=== PATIENT | male | born 1955 | race Caucasian/White ===

== ENCOUNTER → 2016-08-11 | Day surgery (SDC) | payer OTHER ==
[2016-08-11 10:08] LABS: HCT 47.2 % (42.0-52.0); HGB 15.8 g/dl (13.2-18.0); MCH 30.6 pg (25.0-31.0); MCHC 33.5 g/dL (32.0-36.0); MCV 91.5 fL (78.0-100.0); MPV 11.3 fL (6.0-9.5); RBC 5.16 M/uL (4.70-6.00); RDW 13.1 % (11.5-14.0); WBC 6.8 K/uL (4.0-10.5)
[2016-08-11 10:20] LABS: ALBUMIN 4.5 g/dL (3.4-4.8); BILIRUBIN - TOTAL 0.6 mg/dL (0.1-1.0); CREATININE 0.7 mg/dL (0.7-1.2); GLOBULIN (CALCULATION) 3.2 g/dL (2.2-4.2); POTASSIUM 4.7 mmol/L (3.5-5.1); TOTAL PROTEIN 7.7 g/dL (6.4-8.3)
== END | disposition home or self-care (01) ==
LOC: FAS 09:33
PROVIDERS: Surgery
DX: K80.10 Calculus of gallbladder with chronic cholecystitis without obstruction (principal); K42.0 Umbilical hernia with obstruction, without gangrene; K21.9 Gastro-esophageal reflux disease without esophagitis; E11.9 Type 2 diabetes mellitus without complications; E78.00 Pure hypercholesterolemia, unspecified; I10 Essential (primary) hypertension; I25.2 Old myocardial infarction; I25.10 Atherosclerotic heart disease of native coronary artery without angina pectoris; I77.9 Disorder of arteries and arterioles, unspecified; I65.21 Occlusion and stenosis of right carotid artery; G45.3 Amaurosis fugax; Z87.442 Personal history of urinary calculi; Z87.891 Personal history of nicotine dependence; Z95.1 Presence of aortocoronary bypass graft; Z90.49 Acquired absence of other specified parts of digestive tract; Z98.890 Other specified postprocedural states; Z88.1 Allergy status to other antibiotic agents; Z79.82 Long term (current) use of aspirin; Z79.84 Long term (current) use of oral hypoglycemic drugs; Z79.899 Other long term (current) drug therapy
CPT/HCPCS: 36415; 80053; 88304; J1170; J2405; J2704; J2710; J3010; Q9962

== ENCOUNTER → 2020-08-26 | Day surgery (SDC) | payer MEDICARE ==
[~2020-08-26] MED LIST: ALBUTEROL2.5 MG/3 M NEB; ASPIRIN EC81 MG PO; CLOPIDOGREL75 MG PO; COREG 6.25MG6.25 MG PO; EFFIENT10 MG PO; HYDRALAZINE HCL25 MG PO; HYDRALAZINE25 MG PO; ISOSORBIDE MONO30 MG PO; LIPITOR40 MG PO; LISINOPRIL20 MG PO; METFORMIN HCL500 MG PO; METOPROLOL SUCC25 MG PO; NITROGLYCERIN0.4 MG PO; PANTOPRAZOLE SO40 MG PO; PREDNISONE 10MG10 MG PO; PRINIVIL20 MG PO; RANOLAZINE ER500 MG PO; VIBRAMYCIN100 MG PO; ZESTRIL5 MG PO
[2020-08-26 07:39] LABS: HCT 39.2 % (42.0-52.0); HGB 13.4 g/dl (13.2-18.0); MCH 30.9 pg (25.0-31.0); MCHC 34.2 g/dL (32.0-36.0); MCV 90.5 fL (78.0-100.0); MPV 11.2 fL (6.0-9.5); RBC 4.33 M/uL (4.70-6.00); WBC 8.4 K/uL (4.0-10.5)
[2020-08-26 08:10] LABS: ALBUMIN 4.1 g/dL (3.4-5.0); BILIRUBIN - TOTAL 0.9 mg/dL (0.2-1.0); BUN/CREAT RATIO (CALC) 19.4 RATIO; CREATININE 1.03 mg/dL (0.67-1.17); GLOBULIN (CALCULATION) 3.8 g/dL; POTASSIUM 3.4 mmol/L (3.5-5.1); TOTAL PROTEIN 7.9 g/dL (6.4-8.2)
== END | disposition home or self-care (01) ==
LOC: FAS 06:51
PROVIDERS: Surgery
DX: D12.6 Benign neoplasm of colon, unspecified (principal); K63.5 Polyp of colon; K57.30 Diverticulosis of large intestine without perforation or abscess without bleeding; K22.2 Esophageal obstruction; K29.70 Gastritis, unspecified, without bleeding; I25.10 Atherosclerotic heart disease of native coronary artery without angina pectoris; I25.2 Old myocardial infarction; I10 Essential (primary) hypertension; E78.00 Pure hypercholesterolemia, unspecified; E11.51 Type 2 diabetes mellitus with diabetic peripheral angiopathy without gangrene; G47.30 Sleep apnea, unspecified; K58.9 Irritable bowel syndrome, unspecified; Z87.891 Personal history of nicotine dependence; Z95.5 Presence of coronary angioplasty implant and graft; Z88.1 Allergy status to other antibiotic agents; Z79.82 Long term (current) use of aspirin; Z79.02 Long term (current) use of antithrombotics/antiplatelets; Z79.84 Long term (current) use of oral hypoglycemic drugs; Z79.899 Other long term (current) drug therapy
CPT/HCPCS: 36415; 80053; 88305; C1726; J1610; J2250; J2405; J2704; J3490; J7120

== ENCOUNTER 2021-11-12 11:55 | Emergency (ER) | payer MEDICARE ==
[2021-11-12 12:35] LABS: BASOPHIL 0.4 % (0-2); EOSINOPHIL 0.5 % (0-7); HCT 44.4 % (42.0-52.0); HGB 14.8 g/dl (13.2-18.0); LYMPHOCYTE 14.7 % (15-48); MCH 29.7 pg (25.0-31.0); MCHC 33.3 g/dL (32.0-36.0); MONOCYTE 5.6 % (0-12); MPV 11.2 fL (6.0-9.5); NEUTROPHIL 78.2 % (41-80); NRBC 0; PLT 324 K/uL (150-400); RBC 4.99 M/uL (4.70-6.00); RDW 13.2 % (11.5-14.0); WBC 13.1 K/uL (4.0-10.5)
[2021-11-12 12:48] LABS: ALBUMIN 4.3 g/dL (3.4-5.0); BILIRUBIN - TOTAL 0.6 mg/dL (0.2-1.0); BUN/CREAT RATIO (CALC) 19.9 RATIO; CREATININE 1.61 mg/dL (0.67-1.17); GLOBULIN (CALCULATION) 4.6 g/dL; POTASSIUM 4.7 mmol/L (3.5-5.1); TOTAL PROTEIN 8.9 g/dL (6.4-8.2)
[2021-11-12 13:58] LABS: BILIRUBIN 1+ mg/dL (NEGATIVE); BLOOD NEGATIVE Ery/uL (NEGATIVE); CLARITY CLEAR (CLEAR); COLOR YELLOW (YELLOW); GLUCOSE (U) NORMAL (NORMAL); LEUKOCYTES NEGATIVE Leu/uL (NEGATIVE); NITRITE NEGATIVE (NEGATIVE); PROTEIN 2+ mg/dL (NEGATIVE); SPECIFIC GRAVITY >=1.030 (1.001-1.030); UROBILINOGEN 0.2 mg/dL (0.2-1.0); pH 5.5 (5.0-9.0)
[2021-11-12 14:07] LABS: MUCOUS LARGE
== END 2021-11-12 16:58 | disposition home or self-care (01) ==
LOC: FER 11:55
PROVIDERS: Emergency Medicine
DX: R07.89 Other chest pain (principal); N17.9 Acute kidney failure, unspecified; I10 Essential (primary) hypertension; E11.9 Type 2 diabetes mellitus without complications; J44.9 Chronic obstructive pulmonary disease, unspecified; Z79.82 Long term (current) use of aspirin; Z79.84 Long term (current) use of oral hypoglycemic drugs; Z79.899 Other long term (current) drug therapy; Z79.02 Long term (current) use of antithrombotics/antiplatelets
CPT/HCPCS: 36415; 71045; 80053; 81001; 83880; 84484; 85025; 87088; 93005; J7030